=== PATIENT | male | born 2000 | race Caucasian/White ===

== ENCOUNTER 2020-01-24 15:20 | Emergency (ER) | payer BC, OTHER ==
--- NOTE | 2020-01-24 15:39 | EDM.PDOC ---
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 When attempting to tighten, plug broke causing hot operating temperature hydraulic oil, to spill out onto the dorsum of the left hand and slight involvement to the web spacing of the right hand in which he was holding his ranch. As there was no ability to cool in the field, he called home with his mother transported him here by private vehicle, after he was brought home from the [place] on a tractor. Denies any other complicating factors or issues. Is unsure of his tetanus status which was fine per [facility] chart to be almost 10 years November 2010 last immunization. Denies any health issues or contributing factors to this. Onset: Today, Sudden Duration: Minutes: Location: Reports: Upper Extremity, Left, Upper Extremity, Right Front/Back Body Image: 1 - 1st degree 2 - 1st with 2.5cm 2nd degree 3 - 1st degree 4 - 1st degree Quality: Reports: Burning Severity: Severe Improves with: Reports: Cold Therapy Context: Reports: Activity Associated Symptoms: Reports: No Other Symptoms Bilateral Hand Pain Score (Numeric/FACES): 10 - Related Data Allergies Allergy/AdvReac Type Severity Reaction Status Date / Time No Known Drug Allergies Allergy Cannot Verified 01/24/20 15:34 Remember Home Meds: Home Meds . [No Known Home Meds] 01/24/20 [History] Past Medical History Neurological History: Reports: Headaches, Chronic (Resolved after high school completion.) Social & Family History - Family History Family Medical History: Noncontributory - Tobacco Use Smoking Status *Q: Never Smoker Second Hand Smoke Exposure: No - Caffeine Use Caffeine Use: Reports: Coffee, Soda, Tea - Alcohol Use Days Per Week of Alcohol Use: 1 Number of Drinks Per Day: 2 Total Drinks Per Week: 2 - Recreational Drug Use Recreational Drug Use: No ED ROS GENERAL - Review of Systems Review Of Systems: Comprehensive ROS is negative, except as noted in HPI. ED EXAM, GENERAL - Physical Exam Exam: See Below Free Text/Narrative:: Alert oriented in painful distress. HEENT is negative discharge or deformity. No respiratory distress is noted Heart is regular Focused examination to the hands bilateral. Web spacing of the right third fourth digits has first-degree burn with faint redness to the dorsum and the palmar surface of the proximal phalanges. Left hand shows first-degree burn to the dorsum from the wrist and including 2 cm distal radius ulna, to the MCP joints with a 2.3cm oval area of second-degree burn over the second and third metacarpal region. There is 1/2 cm on the proximal fourth metacarpal. Palmar surface shows mild first-degree. Complete flexion/fist making, and is somewhat restricted secondary to the t enderness to the dorsal aspect. Flexion extension of the wrist is intact. Course - Vital Signs Last Recorded V/S: Last Vital Signs Temp 36.0 C L 01/24/20 15:23 Pulse 108 H 01/24/20 15:23 Resp 18 01/24/20 15:23 BP 141/82 H 01/24/20 15:23 Pulse Ox 97 01/24/20 15:23 - Orders/Labs/Meds Orders: Active Orders 24 hr Category Date Time Status Acetaminophen/HYDROcodone [[place] 325-10 MG] Med 01/24/20 15:44 Ordered 10 tab PO Q6H PRN Silver Sulfadiazine [Silvadene 1% Cream 400 GM] Med 01/24/20 21:00 Ordered 400 gm TOP BID Medication Orders Hydrocodone Bitart/Acetaminophen ([place] 325-10 Mg) 10 tab PO Q6H PRN PRN Reason: Pain (severe 7-10) Last Admin: 01/24/20 16:06 Dose: 10 tab Documented by: Silver Sulfadiazine (Silvadene 1% Cream 400 Gm) 400 gm TOP BID [facility] Last Admin: 01/24/20 16:05 Dose: 1 applic Documented by: Meds: Medications Generic Name Dose Route Start Last Admin Trade Name Freq PRN Reason Stop Dose Admin Hydrocodone Bitart/Acetaminophen 10 tab 01/24/20 15:44 01/24/20 16:06 [place] 325-10 Mg PO 10 tab Q6H PRN Administration Pain (severe 7-10) Silver Sulfadiazine 400 gm 01/24/20 21:00 01/24/20 16:05 Silvadene 1% Cream 400 Gm TOP 1 applic BID TANO Administration Discontinued Medications Generic Name Dose Route Start Last Admin Trade Name Freq PRN Reason Stop Dose Admin Diphtheria/Tetanus/Acell Pertussis 0.5 ml 01/24/20 15:37 01/24/20 15:45 Adacel IM 01/24/20 15:38 0.5 ml .ONCE ONE Administration Ketorolac Tromethamine 60 mg 01/24/20 15:44 01/24/20 16:04 Toradol IM 01/24/20 15:45 60 mg ONETIME ONE Administration - Re-Assessments/Exams Free Text/Narrative Re-Assessment/Exam: 01/24/20 17:05 Was placed into [place] emersion. Stated feeling better after 10 minutes, at which time he was allowed to withdraw his hand and use soap to remove any superficial debris. Burn area was reevaluated. Complete resolution of the discomfort between the webs of the right 34 digits with mild irritation still appearing. Continued immersion and allowed him to further clean as tolerated to the left hand with soap. Removed from the water and was allowed to self dry with a towel padding surface dry without disruption of the blister tissue with no active fluid retention as it had apparently ruptured prior to his arrival. He was then placed on the cart at which time Silvadene was applied with nonadherent pad over the dorsum of the hand, and between the fingers to keep them with Silvadene cream in place Kerlix was applied to hold dressings in place. We temporarily placed a extra-large rubber glove to help prevent moisture as a ice bag was once again placed over the dorsum for comfort. Updated on his tetanus status as well as given 60 mg of Toradol IM. Discharged with instructions as well as 02/06/2025 hydrocodone, 1 every 4 hours or 2 every 6. Advised to take 1 when getting home with food and then may take 2 at bedtime. Elevate as much as possible and may continue ice pack to the surface intermittently for comfort. Also discussed that he may use his artificial insemination gloves to protect from any moisture while working but should not leave on long-term, and may use that also for icewater immersion if needed for discomfort. Departure - Departure Time of Disposition: 16:10 Disposition: Home, Self-Care 01 Condition: Good Clinical Impression: Burn - Discharge Information *PRESCRIPTION DRUG MONITORING PROGRAM REVIEWED*: No *COPY OF PRESCRIPTION DRUG MONITORING REPORT IN PATIENT KRISTINA: No Forms: ED Department Discharge Additional Instructions: Leave dressing with Silvadene in place for the remainder of today, remove and wash tomorrow morning when you get up. You will then reapply Silvadene and dressing when your skin is dried off and change that twice daily or as needed when getting soiled. Keep is clean and dry as possible, if dressings get wet they need to be changed. Your tetanus status is been updated today and will be good for routine coverage for 10 years. You have been given a shot of Toradol which will help with pain and inflammation. You have been provided 10 hydrocodone 02/06/2025 to be taken 1 on 4-hour basis or 2 on a 6-hour basis as needed to remain comfortable. The pain will continue for the next 24 hours to some extent despite what you tried to do. 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 Silvadene cream that is applied should be kept as sterile or close to sterile as possible and it may be refrigerated between uses and the remainder after treatment is completed. You need to be seen in the clinic or return to the emergency department if it appears you are developing any source of infection. The small circular area that has blistered on the top of the left hand, will slough off and usually is protected by the use of Silvadene reducing the risk of infection. Call or return if questions occur over the weekend or contact your clinic Sunday as needed Sepsis Event Note (ED) - Evaluation Sepsis Screening Result: No Definite Risk - Focused Exam Vital Signs: Vital Signs Temp Pulse Resp BP Pulse Ox 01/24/20 15:23 36.0 C L 108 H 18 141/82 H 97 - Problem List & Annotations (1) Burn SNOMED Code(s): 621390110 Code(s): T30.0 - BURN OF UNSPECIFIED BODY REGION, UNSPECIFIED DEGREE Status: Acute - My Orders Last 24 Hours: My Active Orders 01/24/20 15:44 Acetaminophen/HYDROcodone [[place] 325-10 MG] 10 tab PO Q6H PRN 01/24/20 21:00 Silver Sulfadiazine [Silvadene 1% Cream 400 GM] 400 gm TOP BID - Assessment/Plan Last 24 Hours: My Active Orders 01/24/20 15:44 Acetaminophen/HYDROcodone [[place] 325-10 MG] 10 tab PO Q6H PRN 01/24/20 21:00 Silver Sulfadiazine [Silvadene 1% Cream 400 GM] 400 gm TOP BID Plan: Leave dressing with Silvadene in place for the remainder of today, remove and wash tomorrow morning when you get up. You will then reapply Silvadene and dressing when your skin is dried off and change that twice daily or as needed when getting soiled. Keep is clean and dry as possible, if dressings get wet they need to be changed. Your tetanus status is been updated today and will be good for routine coverage for 10 years. You have been given a shot of Toradol which will help with pain and inflammation. You have been provided 10 hydrocodone 02/06/2025 to be taken 1 on 4-hour basis or 2 on a 6-hour basis as needed to remain comfortable. The pain will continue for the next 24 hours to some extent despite what you tried to do. 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 Silvadene cream that is applied should be kept as sterile or close to sterile as possible and it may be refrigerated between uses and the remainder after treatment is completed. You need to be seen in the clinic or return to the emergency department if it appears you are developing any source of infection. The small circular area that has blistered on the top of the left hand, will slough off and usually is protected by the use of Silvadene reducing the risk of infection. Call or return if questions occur over the weekend or contact your clinic Sunday as needed
[2020-01-24] MEDS: Diphtheria,Pertussis(Acell),Tetanus Vaccine 0.5 ML SDV IM ONE (15:45)
[2020-01-24] MEDS: Ketorolac 60 MG/2 ML SDV IM ONE (16:04)
[2020-01-24] MEDS: Silver Sulfadiazine 1% Crm 400 GM Jar TOP SCH (16:05)
[2020-01-24] MEDS: Acetaminophen/HYDROcodone 325-10 MG Tab PO PRN (16:06)
== END 2020-01-24 16:25 | disposition home or self-care (01) ==
LOC: KA.ED 15:20
DX: T23.202A Burn of second degree of left hand, unspecified site, initial encounter (principal); T23.101A Burn of first degree of right hand, unspecified site, initial encounter; Z23 Encounter for immunization; X12.XXXA Contact with other hot fluids, initial encounter
CPT/HCPCS: 16020; 90471; 90715; 96372; 99283; 99283-25; A9270-GY; J1885